=== PATIENT | female | born 1965 | race Caucasian/White ===

== ENCOUNTER 2018-12-24 10:06 | Emergency (ER) | payer MEDICARE ==
[2018-12-24 10:30] VITALS: BP 0/0
--- NOTE | 2018-12-24 10:40 | UC ---
Eye Complaint HPI - HPI Summary HPI Summary: The patient is a 53-year-old female who presents to the urgent care with chief complaint of having floaters, flashes, and a flat flashing light in the left eye for the last 2-3 days. The patient reports I think of having a retinal detachment. She denies any pain, denies any decrease in vision, denies any eye discharge. She has no other complaints. - History of Current Complaint Chief Complaint: UCEye Stated Complaint: FLASHING IN EYES Time Seen by Provider: 12/24/18 10:31 Hx Obtained From: Patient Hx Last Menstrual Period: 11/2018 - sporadic Pain Intensity: 0 - Allergies/Home Medications Allergies/Adverse Reactions: Allergies Allergy/AdvReac Type Severity Reaction Status Date / Time gluten Allergy Rash Verified 12/24/18 10:14 Milk Containing Products Allergy Rash Verified 12/24/18 10:14 sesame seed Allergy Rash Verified 12/24/18 10:14 Sulfa (Sulfonamide Allergy Rash Verified 12/24/18 10:13 Antibiotics) Home Medications: Home Medications Aspirin 81 mg CHEW TAB* [Aspirin Low Dose TAB*] 81 mg PO DAILY 12/24/18 [ History Confirmed 12/24/18] Dapagliflozin Propanediol [Farxiga] 5 mg PO DAILY 12/24/18 [History Confirmed ] Lisinopril TAB* [Prinivil TAB*] 5 mg PO DAILY 12/24/18 [History Confirmed ] Meloxicam 7.5 mg PO BID 12/24/18 [History Confirmed 12/24/18] buPROPion SR TAB* [Wellbutrin SR TAB*] 300 mg PO DAILY 12/24/18 [History Confirmed 12/24/18] metFORMIN* [Glucophage 1000 MG TAB *] 1,000 mg PO BID 12/24/18 [History Confirmed 12/24/18] raNITIdine HCl [Acid Control] 75 mg PO BID 12/24/18 [History Confirmed 12/24/18] PMH/Surg Hx/FS Hx/Imm Hx Previously Healthy: Yes Endocrine History: Diabetes Neurological History: Other - Vertigo Psychological History: Depression - Surgical History Surgical History: Yes Surgery Procedure, Year, and Place: GALL BLADDER; left TIBIA leg reconstruction with screws 02/12/14; wisdom teeth , tonsillectomy - Family History Known Family History: Positive: Non-Contributory - Social History Alcohol Use: Rare Substance Use Type: None Smoking Status (MU): Never Smoked Tobacco Type: Cigarettes - Immunization History Most Recent Influenza Vaccination: UNKNOWN Most Recent Tetanus Shot: UNKNOWN Most Recent Pneumonia Vaccination: UNKNOWN Review of Systems All Other Systems Reviewed And Are Negative: Yes Constitutional: Positive: Negative Skin: Positive: Negative Eyes: Positive: Other - Floater, flashing ENT: Positive: Negative Respiratory: Positive: Negative Cardiovascular: Positive: Negative Gastrointestinal: Positive: Negative Genitourinary: Positive: Negative Motor: Positive: Negative Neurovascular: Positive: Negative Musculoskeletal: Positive: Negative Neurological: Positive: Negative Psychological: Positive: Negative Is Patient Immunocompromised?: No Physical Exam - Summary Physical Exam Summary: GENERAL: Patient is a well developed female who is sitting comfortable in the stretcher. Patient is not in any acute respiratory distress. HEAD AND FACE: Normocephalic and atraumatic. EYES: PERRLA, EOMI x 2, EARS: Hearing grossly intact. MOUTH: Oropharynx within normal limits. NECK: Supple, trachea is midline, no adenopathy, no JVD, no carotid bruit, no c- spine tenderness, neck with full ROM. CHEST: Symmetric, no tenderness at palpation LUNGS: CTA B/L. No wheezing or crackles. CVS: RRR, S1 and S2 present, no murmurs or gallops appreciated. ABDOMEN: Soft, NT, No distention. Normal BS. EXTREMITIES: FROM in all major joints, no edema, no cyanosis or clubbing. NEURO: Alert and oriented x 3. No acute neurological deficits. Speech is normal and follows commands. SKIN: Dry and warm Triage Information Reviewed: Yes Appearance: Well-Appearing, No Pain Distress, Well-Nourished Vital Signs: Initial Vital Signs Temp 96 F 12/24/18 10:21 Pulse 112 12/24/18 10:21 Resp 18 12/24/18 10:21 BP 0/0 12/24/18 10:21 Pulse Ox 96 12/24/18 10:21 Eye Complaint Course/Dx - Course Course Of Treatment: Due to the patient complaint I bellieve patient will benefit from Ophthalmology consult. Therefore, I was able to get an appointment for this patient at 3:[address] Randall today. The patient was strongly recommended to keep the appointment and to follow-up with Dr. Randall. She understands and agrees. - Differential Dx/Diagnosis Provider Diagnosis: Visual changes Discharge - Sign-Out/Discharge Documenting (check all that apply): Patient Departure All imaging exams completed and their final reports reviewed: No Studies - Discharge Plan Condition: Stable Disposition: HOME Patient Education Materials: Visual Floaters (ED) Referrals: Melba Nolan MD [Primary Care Provider] - Ace Randall [Medical Doctor] - Additional Instructions: Appoitment with Dr. Randall from opthalmology Phone [phone] - Billing Disposition and Condition Condition: STABLE Disposition: Home
== END 2018-12-24 10:55 | disposition home or self-care (01) ==
LOC: UCEAST 10:06
DX: H53.8 Other visual disturbances (principal); E11.9 Type 2 diabetes mellitus without complications; Z79.84 Long term (current) use of oral hypoglycemic drugs; F32.9 Major depressive disorder, single episode, unspecified; Z79.82 Long term (current) use of aspirin; Z91.011 Allergy to milk products; Z88.2 Allergy status to sulfonamides; Z91.018 Allergy to other foods
CPT/HCPCS: 99211; G0463